=== PATIENT | male | born 1950 | race Caucasian/White ===

== ENCOUNTER 2019-06-16 08:19 | Day surgery (SDC) | payer MEDICARE, OTHER ==
[2019-06-16] MEDS ORDERED: Succinylcholine Chloride 20 MG/ML 10 ml SYRINGE FS ONE ×2 (10:33→11:38)
[2019-06-16] MEDS ORDERED: Ondansetron PF 4 MG/2 ML Vial ONE (10:33)
[2019-06-16 10:46] LABS: Hemoglobin 15.5 g/dL (14.0-18.0)
[2019-06-16 11:02] LABS: Anion Gap 10 mmol/L (10-20); BUN (Urea Nitrogen) 13 mg/dL (8.4-25.7); Calc. Creatinine Clearance 0 mL/min (70-130); Calcium 9.2 mg/dL (7.8-10.44); Carbon Dioxide 23 mmol/L (23-31); Chloride 110 mmol/L (98-107); Estimated GFR-MDRD Greater than 90; Glucose 99 mg/dL (80-115); Sodium 139 mmol/L (136-145)
[2019-06-16] MEDS ORDERED: EPINEPHrine 1 MG/ML AMP ONE (11:02)
[2019-06-16] MEDS ORDERED: Midazolam HCl 2 mg/2 ml Vial ONE (11:03)
[2019-06-16] MEDS ORDERED: Fentanyl 250 MCG/5 ML VIAL ONE (11:03)
[2019-06-16] MEDS ORDERED: Propofol 500 MG/50 ML VIAL ONE (11:04)
[2019-06-16] MEDS ORDERED: Fentanyl 100 MCG/2 ML VIAL ONE ×3 (12:28→13:49)
--- NOTE | 2019-06-17 11:02 | OP ---
DATE OF PROCEDURE: 06/16/2019 PREOPERATIVE DIAGNOSIS: Right posterior vocal cord lesion. POSTOPERATIVE DIAGNOSIS: Right posterior vocal cord lesion. PROCEDURE PERFORMED: Microsuspension laryngoscopy with biopsy of right posterior vocal cord lesion. ANESTHESIA: Jet ventilation anesthesia. FINDINGS: The patient was found to have an exophytic lesion in the right posterior aspect of the vocal cord. The patient intraoperatively was found to be very anterior making direct laryngoscopy and intubation quite difficult. PROCEDURE IN DETAIL: After consent was obtained, the patient was identified and brought to the operating room and placed on the operating table in supine position. General endotracheal anesthesia was obtained with a jet ventilating tube, and the patient was positioned for surgery. The patient had a very short jaw, and anterior airway laryngoscope was placed via a curved biopsy forceps and a 30-degree endoscope. We will visualize the larynx and obtain a series of biopsies of the posterior cord. We sent those for permanent histologic evaluation. The patient was then awakened, extubated, and taken to recovery room in stable condition prior to discharge home. Job ID: [id number]
== END 2019-06-16 14:35 | disposition home or self-care (01) ==
LOC: SDC 08:19
PROVIDERS: ATTEND Specialist
PROC: 0CBT8ZX Excision of Right Vocal Cord, Via Natural or Artificial Opening Endoscopic, Diagnostic (ICD-10-PCS; principal; 2019-06-16)
DX: D02.0 Carcinoma in situ of larynx (principal); M19.90 Unspecified osteoarthritis, unspecified site; H81.09 Meniere's disease, unspecified ear; K21.9 Gastro-esophageal reflux disease without esophagitis; Z79.899 Other long term (current) drug therapy; Z98.890 Other specified postprocedural states
CPT/HCPCS: 36415; 80048; 85014; 85018; 88305; 93005; 93010; J0171; J2250; J2405; J2704; J3010

== ENCOUNTER 2019-06-29 09:00 | Outpatient (CLI) | payer MEDICARE, OTHER ==
--- NOTE | 2019-06-29 09:48 | CT ---
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 Fullness sensation in the throat. Hoarseness. COMPARISON: None. FINDINGS: Visualized brain parenchyma is unremarkable. Adequate aeration of the visualized paranasal sinuses and mastoid air cells. Aerodigestive tract is patent. No mucosal abnormality in the oral cavity. Limited evaluation due to d ental amalgam artifact. Midline fatty raphae of the tongue preserved. There is asymmetric fullness along the posterior oral cavity/hypopharynx, left greater than right. Epiglottis has a normal caliber . Preepiglottic fat is preserved. Supraglottic larynx is unremarkable. There is mild asymmetric fullness of the right vocal cord. Subglottic larynx is unremarkable. Thyroid gland, submandibular glands and parotid glands have appropriate attenuation. Appropriate attenuation of the paraspinal muscles. Grossly the great vessels of the neck are patent. Technique limits evaluation. Multilevel degenerative changes of the cervical spine with loss of disc space height and osteophyte f ormation. There are varying degrees of central canal stenosis and neural foraminal narrowing due to degenerative change. Technique limits evaluation. No acute abnormality in the visualized mediastinum and lung parenchyma. Multiple pleural-based calcif ications are noted in the lung apices. No evidence of lymphadenopathy by size criteria. No evidence of lymphadenopathy in the visualized axilla and periclavicular region. IMPRESSION: 1. Mild mucosal fullness involving the left and right posterior oral cavity/hypopharynx. Direct visua lization is recommended for mucosal-based abnormality. 2. Mild fullness of the right vocal cord. Direct visualization is recommended. 3. No evidence of lymphadenopathy by size criteria. Transcribed Date/Time: 06/29/2019 9:58 AM
[2019-06-29] MEDS ORDERED: Iopamidol 370 76% 100 ML VIAL ONE (13:53)
== END 2019-06-29 09:01 | disposition home or self-care (01) ==
LOC: BICCT 09:00
PROVIDERS: ATTEND Specialist
DX: C80.1 Malignant (primary) neoplasm, unspecified (principal); J38.3 Other diseases of vocal cords
CPT/HCPCS: 70491; Q9967

== ENCOUNTER 2020-11-22 | Outpatient (CLI) | payer MEDICARE, OTHER | END 2020-11-22 07:35 | disposition home or self-care (01) ==